=== PATIENT | female | born 2000 | race African-American/Black ===

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

== ENCOUNTER 2018-05-04 15:12 | Emergency (ER) | payer OTHER ==
[2018-05-04 15:23] VITALS: BP 119/71
--- NOTE | 2018-05-04 15:31 | PHYS DOC ---
Past History Past Medical History: No Pertinent History Past Surgical History: Other Smoking: Cigarettes, Less than 1pk/day Alcohol Use: None Drug Use: None Adult General Chief Complaint Chief Complaint: EARACHE/EAR PAIN HPI HPI Patient is a 17-year-old female who presents with complaint of sore throat, bilateral ear pain as well as cough and congestion for the last couple of days. She states that she has had a purulent nasal discharge as well. She states that she has had a fever as high as 100 at home. She denies any nausea or vomiting. Review of Systems Review of Systems Constitutional: Complains of fever[] Eyes: Denies change in visual acuity, redness, or eye pain [] HENT: Complains of sore throat with nasal congestion and purulent nasal discharge[] Respiratory: Complains of cough without shortness of breath[] Musculoskeletal: Denies back pain or joint pain [] Integument: Denies rash or skin lesions [] All other systems were reviewed and found to be within normal limits, except as documented in this note. Allergies Allergies Allergies Coded Allergies Type Severity Reaction Last Updated Verified Sulfa (Sulfonamide Antibiotics) Allergy Intermediate Blood in stool 05/19/16 No Physical Exam Physical Exam Constitutional: Well developed, well nourished, no acute distress, non-toxic appearance. [] HENT: Left TM is dull and erythematous. Oropharynx demonstrates posterior cobblestoning. There are no tonsillar exudates. Frontal sinuses are nontender but maxillary sinuses are tender bilaterally. [] Eyes: PERRLA, EOMI, conjunctiva normal, no discharge. [] Neck: Normal range of motion, no tenderness, supple, no stridor. [] Cardiovascular:Heart rate regular rhythm [] Lungs & Thorax: Bilateral breath sounds clear to auscultation [] Skin: Warm, dry, no erythema, no rash. [] EKG EKG [] Radiology/Procedures Radiology/Procedures [] Course & Med Decision Making Course & Med Decision Making Pertinent Labs and Imaging studies reviewed. (See chart for details) [] Dragon Disclaimer Dragon Disclaimer This electronic medical record was generated, in whole or in part, using a voice recognition dictation system. Departure Departure: Impression: Primary Impression: Acute sinusitis Additional Impression: Left otitis media Disposition: 01 HOME, SELF-CARE Condition: STABLE Referrals: EMILY LA (PCP) Patient Instructions: Otitis Media, Adult, Sinusitis Problem Qualifiers Primary Impression: Acute sinusitis Sinusitis location: maxillary Recurrence: not specified as recurrent Qualified Codes: J01.00 - Acute maxillary sinusitis, unspecified Additional Impression: Left otitis media Otitis media type: unspecified Qualified Codes: H66.92 - Otitis media, unspecified, left ear AYDEE CARBAJAL Jr. DO May 04, 2018 15:31
== END 2018-05-04 15:41 | disposition home or self-care (01) ==
LOC: ER 15:12
DX: J01.00 Acute maxillary sinusitis, unspecified (principal); H66.92 Otitis media, unspecified, left ear; F17.210 Nicotine dependence, cigarettes, uncomplicated; Z88.2 Allergy status to sulfonamides
CPT/HCPCS: 99281

== ENCOUNTER 2018-10-06 00:22 | Emergency (ER) | payer OTHER ==
[~2018-10-06] VITALS: Ht 172.7 cm; Wt 118.9 kg
[2018-10-06 00:47] VITALS: BP 96/62
--- NOTE | 2018-10-06 01:03 | PHYS DOC ---
Past History Past Medical History: No Pertinent History Past Surgical History: Other Smoking: Cigarettes, Less than 1pk/day Alcohol Use: None Drug Use: None Adult General Chief Complaint Chief Complaint: CHEST PAIN HPI HPI Patient is a 17-year-old female who presents with complaint of chest wall pain that started this evening. She states that she has been having cough for the last couple of days that has been dry. She states that she is starting to get sore in her chest. She states that the pain in her chest is worse with deep breathing and with certain movements. She describes it as sharp and stabbing and rates the pain at a 6 out of 10. She denies any nausea, vomiting or diaphoresis. She also denies any fever. Review of Systems Review of Systems Constitutional: Denies fever or chills [] Respiratory: Complains of cough without shortness of breath [] Cardiovascular: No additional information not addressed in HPI [] GI: Denies abdominal pain, nausea, vomiting, bloody stools or diarrhea [] Musculoskeletal: Denies back pain or joint pain [] All other systems were reviewed and found to be within normal limits, except as documented in this note. Allergies Allergies Allergies Coded Allergies Type Severity Reaction Last Updated Verified Sulfa (Sulfonamide Antibiotics) Allergy Intermediate Blood in stool 10/06/18 No Physical Exam Physical Exam Constitutional: Well developed, well nourished, no acute distress, non-toxic appearance. [] HENT: Normocephalic, atraumatic, bilateral external ears normal, oropharynx moist, no oral exudates, nose normal. [] Cardiovascular:Heart rate regular rhythm, no murmur [] Lungs & Thorax: Bilateral breath sounds clear to auscultation [] Extremities: No tenderness, no cyanosis, no clubbing, ROM intact, no edema. [] Neurologic: Alert and oriented X 3, no focal deficits noted. [] Current Patient Data Vital Signs Vital Signs Date Time Temp Pulse Resp B/P (MAP) Pulse Ox O2 Delivery O2 Flow Rate FiO2 10/06/18 00:47 98.5 85 20 100 Room Air EKG EKG EKG demonstrates normal sinus rhythm with no ST segment abnormalities.[] Radiology/Procedures Radiology/Procedures [] Impressions: Chest x-ray demonstrates no acute process. Course & Med Decision Making Course & Med Decision Making Pertinent Labs and Imaging studies reviewed. (See chart for details) [] Dragon Disclaimer Dragon Disclaimer This electronic medical record was generated, in whole or in part, using a voice recognition dictation system. Departure Departure: Impression: Primary Impression: Chest wall pain Additional Impression: URI (upper respiratory infection) Disposition: HOME, SELF-CARE Condition: STABLE Referrals: EMILY LA (PCP) Patient Instructions: Chest Wall Pain, Upper Respiratory Infection, Adult Scripts Azithromycin (ZITHROMAX) 250 Mg Tablet 1 PKG PO UD for infection, #6 TAB Prov: AYDEE CARBAJAL Jr. DO 10/06/18 Benzonatate (TESSALON PERLE) 100 Mg Capsule 1 CAP PO TID PRN for COUGH, #21 CAP Prov: AYDEE CARBAJAL Jr. DO 10/06/18 Problem Qualifiers Additional Impression: URI (upper respiratory infection) URI type: unspecified URI Qualified Codes: J06.9 - Acute upper respiratory infection, unspecified AYDEE CARBAJAL Jr. DO Oct 06, 2018 01:03
[2018-10-06] MEDS ORDERED: BENZ100C PO (01:51)
[2018-10-06] MEDS ORDERED: AZIT250T PO (01:51)
[2018-10-06] MEDS ORDERED: AZITHROMYCIN 250 MG TABLET. ONE (01:56)
[2018-10-06] MEDS ORDERED: AZITHROMYCIN 250 MG TABLET. PO ONE (02:15)
--- NOTE | 2018-10-06 06:29 | EKG ---
[address] [address] Test Date: 2018-10-06 Test Time: 01:16:02 Pat Name: MARICRUZ GREENFIELD Department: Room: Gender: F [employer]: : 2000 Requested By: AYDEE CARBAJAL Order Number: [id number] Reading MD: Richard Velasquez MD Measurements Intervals [place] Rate: 69 P: 31 NH: 158 QRS: 55 QRSD: 78 T: 27 QT: 370 QTc: 398 Interpretive Statements SINUS RHYTHM Electronically Signed On 10-10-2018 15:04:50 CDT by Richard Velasquez MD
--- NOTE | 2018-10-06 08:03 | RAD ---
Chest, PA and Lateral: Technique: PA and lateral views of the chest were obtained. History: Cough, chest pain. Comparison: None. Findings: The heart and pulmonary vasculature appear within normal limits. The lungs are clear. The pleural margins are clear. Impression: No acute chest process is seen. Electronically signed by: Juan Antonio Caceres MD (10/06/2018 8:00 AM) [facility]
== END 2018-10-06 02:07 | disposition home or self-care (01) ==
LOC: ER 00:22
DX: R07.89 Other chest pain (principal); J06.9 Acute upper respiratory infection, unspecified; F17.210 Nicotine dependence, cigarettes, uncomplicated; Z88.2 Allergy status to sulfonamides
CPT/HCPCS: 71046; 93005; 99283; J0456

== ENCOUNTER 2019-01-24 15:56 | Emergency (ER) | payer OTHER ==
[~2019-01-24] VITALS: Ht 172.7 cm; Wt 115.6 kg
[~2019-01-24 15:56] MED LIST changes: +AZIT250T PO; +BENZ100C PO
[2019-01-24 15:58] VITALS: BP 135/90
[2019-01-24] MEDS ORDERED: CEPH-264 PO (16:16)
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
== END 2019-01-24 16:20 | disposition home or self-care (01) ==
LOC: ER 15:56
DX: T24.022A Burn of unspecified degree of left knee, initial encounter (principal); T24.021A Burn of unspecified degree of right knee, initial encounter; L03.115 Cellulitis of right lower limb; E11.9 Type 2 diabetes mellitus without complications; F17.210 Nicotine dependence, cigarettes, uncomplicated; Z88.2 Allergy status to sulfonamides; X08.8XXA Exposure to other specified smoke, fire and flames, initial encounter; Y93.89 Activity, other specified; Y92.89 Other specified places as the place of occurrence of the external cause; Y99.8 Other external cause status
CPT/HCPCS: 99283

== ENCOUNTER → 2019-03-07 | Outpatient (CLI) | payer OTHER ==
[~2019-03-07] MED LIST changes: +CEPH-264 PO
[2019-03-07 15:28] LABS: BASO % 1 % (0-3); EOS # 0.2 x10^3/uL (0.0-0.7); EOS % 3 % (0-3); HEMOGLOBIN 13.5 g/dL (12.0-15.5); LYMPH # 3.5 x10^3/uL (1.0-4.8); LYMPH % 40 % (24-48); MEAN CORPUSCULAR HEMOGLOBIN 31 pg (25-35); MEAN CORPUSCULAR HGB CONC 34 g/dL (31-37); MEAN CORPUSCULAR VOLUME 91 fL (79-100); MONO # 0.4 x10^3/uL (0.0-1.1); MONO % 5 % (0-9); NEUT # 4.5 x10^3uL (1.8-7.7); NEUT % 52 % (31-73); PLATELET COUNT 396 x10^3/uL (140-400); WHITE BLOOD COUNT 8.7 x10^3/uL (4.0-11.0)
[2019-03-08 10:14] LABS: THYROID STIM HORMONE (TSH) 0.934 uIU/mL (0.358-3.740)
[2019-03-08 11:07] LABS: C-PEPTIDE 2.3 ng/mL (1.1-4.4); INSULIN LEVEL 9.5 uIU/mL (2.6-24.9)
== END | disposition home or self-care (01) ==
LOC: LAB 14:32
PROVIDERS: ATTEND Family Medicine
DX: E16.1 Other hypoglycemia (principal)
CPT/HCPCS: 36415; 80061; 82728; 83525; 83540; 83550; 84443; 84681; 85025

== ENCOUNTER 2019-04-09 20:27 | Emergency (ER) | payer OTHER ==
[~2019-04-09] VITALS: Ht 172.7 cm; Wt 114.0 kg
--- NOTE | 2019-04-09 20:39 | ED.ADGEN ---
Past History Past Medical History: Constipation, Diabetes Past Surgical History: No Surgical History Smoking: Cigarettes, Less than 1pk/day Alcohol Use: None Drug Use: None Adult General Chief Complaint Chief Complaint ".. I am having some abdomen pain... " [facility] HPI Patient is a 18 year old female who presents with above hx and complaints of abdomen pain. Pain started this morning. Seems to be in lower abdomen and more towards the right and mid abdomen. No history of bad food. No history of trauma. No history of significant ill contacts. No history of travel. No complaints of dysuria or vaginal discharge. Patient has been 2 times with 2 miscarriages .Does have a history of PCOs US 2 yrs ago at [facility], no large cysts. Patient does take metformin . P no family history of colitis. No history immunosuppression. Patient normally healthy. No history of STDs. Has had 4 lifetime sexual partners. Did have a stool this morning. PT. follows with Dr. Hernandez. Review of Systems Review of Systems Constitutional: Denies fever or chills [] Eyes: Denies change in visual acuity, redness, or eye pain [] HENT: Denies nasal congestion or sore throat [] Respiratory: Denies cough or shortness of breath [] Cardiovascular: No additional information not addressed in [facility] [] GI: Complaints of mid and right lower abdominal pain,. Denies nausea, vomiting, bloody stools or diarrhea [] : Denies dysuria or hematuria [] Musculoskeletal: Denies back pain or joint pain [] Integument: Denies rash or skin lesions [] Neurologic: Denies headache, focal weakness or sensory changes [] Endocrine: Denies polyuria or polydipsia [] All other systems were reviewed and found to be within normal limits, except as documented in this note. Family History Family History Noncontributory Current Medications Current Medications Current Medications Medications (Trade) Dose Ordered Sig/Mp Start Time Stop Time Status Last Admin Dose Admin Famotidine (Pepcid Vial) 20 mg 1X ONCE 04/09/19 21:30 04/09/19 21:31 DC 04/09/19 22:37 20 MG Iohexol (Omnipaque 240 Mg/ml) 30 ml 1X ONCE 04/09/19 23:15 04/09/19 23:16 DC 04/10/19 00:15 30 ML Iohexol (Omnipaque 300 Mg/ml) 75 ml 1X ONCE 04/09/19 23:15 04/09/19 23:16 DC 04/10/19 00:15 75 ML Lactated Ringer's 1,000 ml @ 1,000 mls/hr Q1H 04/09/19 21:06 04/09/19 22:05 DC 04/09/19 22:37 1,000 MLS/HR Levofloxacin (Levaquin) 500 mg 1X ONCE 04/10/19 01:15 04/10/19 02:49 DC 04/10/19 01:42 500 MG Magnesium Hydroxide (Milk Of Magnesia) 2,400 mg 1X ONCE 04/10/19 00:30 04/10/19 00:31 DC 04/10/19 00:35 2,400 MG Metronidazole (Flagyl) 500 mg 1X ONCE 04/10/19 01:15 04/10/19 02:50 DC 04/10/19 01:42 500 MG Ondansetron HCl (Zofran) 8 mg 1X ONCE 04/09/19 21:30 04/09/19 21:31 DC 04/09/19 22:37 8 MG See nursing for home medications Allergies Allergies Allergies Coded Allergies Type Severity Reaction Last Updated Verified Sulfa (Sulfonamide Antibiotics) Allergy Intermediate Blood in stool 10/06/18 No Physical Exam Physical Exam Constitutional: Moderate acute distress, non-toxic appearance. [] HENT: Normocephalic, atraumatic, bilateral external ears normal, oropharynx moist, no oral exudates, nose normal. [] Eyes: PERRLA, EOMI, conjunctiva normal, no discharge. [] Neck: Normal range of motion, no tenderness, supple, no stridor. [] Cardiovascular:Heart rate regular rhythm, no murmur [] Lungs & Thorax: Bilateral breath sounds equal apexes scattered wheezes on auscultation [] Abdomen: Bowel sounds normal, soft, right mid and lower abdomen tenderness, no masses, no pulsatile masses. [] Has rebound to right mid and lower abdomen. Moderate distention. Declines rectal at this time. Skin: Warm, dry, no erythema, no rash. [] Back: No tenderness, no CVA tenderness. [] Extremities: No tenderness, no cyanosis, no clubbing, ROM intact, no edema. [] Psoas sign on right Neurologic: Alert and oriented X 3, normal motor function, normal sensory function, no focal deficits noted. [] Psychologic: Affect anxious, judgement normal, mood normal. [] Current Patient Data Vital Signs Vital Signs Date Time Temp Pulse Resp B/P (MAP) Pulse Ox O2 Delivery O2 Flow Rate FiO2 04/09/19 20:50 97.9 79 18 99 Room Air Lab Results Laboratory Tests Test 04/09/19 20:55 04/09/19 21:29 Urine Collection Type Unknown Urine Color Yellow Urine Clarity Hazy Urine pH 7.0 Urine Specific [place] 1.020 Urine Protein Neg (NEG-TRACE) Urine Glucose (UA) Neg mg/dL (NEG) Urine Ketones (Stick) Neg mg/dL (NEG) Urine Blood Neg (NEG) Urine Nitrite Neg (NEG) Urine Bilirubin Neg (NEG) Urine Urobilinogen Dipstick 0.2 mg/dL (0.2 mg/dL) Urine Leukocyte Esterase Neg (NEG) Urine RBC 0 /HPF (0-2) Urine WBC 1-4 /HPF (0-4) Urine Squamous Epithelial Cells Occ /LPF Urine Bacteria Few /HPF (0-FEW) Urine Mucus Mod /LPF Urine Opiates Screen Neg (NEG) Urine Methadone Screen Neg (NEG) Urine Barbiturates Neg (NEG) Urine Phencyclidine Screen Neg (NEG) Urine Amphetamine/Methamphetamine Neg (NEG) Urine Benzodiazepines Screen Neg (NEG) Urine Cocaine Screen Pos (NEG) Urine Cannabinoids Screen Pos (NEG) Urine Ethyl Alcohol Neg (NEG) White Blood Count 8.1 x10^3/uL (4.0-11.0) Red Blood Count 3.96 x10^6/uL (3.50-5.40) Hemoglobin 12.0 g/dL (12.0-15.5) Hematocrit 36.6 % (36.0-47.0) Mean Corpuscular Volume 93 fL (79-100) Mean Corpuscular Hemoglobin 30 pg (25-35) Mean Corpuscular Hemoglobin Concent 33 g/dL (31-37) Red Cell Distribution Width 14.3 % (11.5-14.5) Platelet Count 325 x10^3/uL (140-400) Neutrophils (%) (Auto) 46 % (31-73) Lymphocytes (%) (Auto) 47 % (24-48) Monocytes (%) (Auto) 5 % (0-9) Eosinophils (%) (Auto) 2 % (0-3) Basophils (%) (Auto) 1 % (0-3) Neutrophils # (Auto) 3.7 x10^3uL (1.8-7.7) Lymphocytes # (Auto) 3.8 x10^3/uL (1.0-4.8) Monocytes # (Auto) 0.4 x10^3/uL (0.0-1.1) Eosinophils # (Auto) 0.2 x10^3/uL (0.0-0.7) Basophils # (Auto) 0.1 x10^3/uL (0.0-0.2) Maternal Serum HCG Beta Subunit < 1 mIU/mL (0-6) Sodium Level 140 mmol/L (136-145) Potassium Level 3.9 mmol/L (3.5-5.1) Chloride Level 105 mmol/L (98-107) Carbon Dioxide Level 27 mmol/L (21-32) Anion Gap 8 (6-14) Blood Urea Nitrogen 11 mg/dL (7-20) Creatinine 0.9 mg/dL (0.6-1.0) Estimated GFR (Cockcroft-Gault) 96.6 Glucose Level 84 mg/dL (70-99) Calcium Level 8.7 mg/dL (8.5-10.1) Total Bilirubin 0.2 mg/dL (0.2-1.0) Direct Bilirubin 0.1 mg/dL (0.0-0.2) Aspartate Amino Transferase (AST) 14 U/L (15-37) L Alanine Aminotransferase (ALT) 12 U/L (14-59) L Alkaline Phosphatase 72 U/L (46-116) Total Protein 6.8 g/dL (6.4-8.2) Albumin 3.5 g/dL (3.4-5.0) Amylase Level 30 U/L (25-115) Lipase 66 U/L (73-393) L EKG EKG [] Radiology/Procedures Radiology/Procedures [[address] [address] IMAGING REPORT Signed PATIENT: MARICRUZ GREENFIELD ACCOUNT: [id number] : 2000 LOCATION: ER AGE: 18 SEX: F EXAM STATUS: REG ER ORD. PHYSICIAN: MORENA HAAS MD REASON: pain PROCEDURE: CT ABD PELV W/ORAL&IV CONTRAST CT abdomen and pelvis with contrast PQRS statement: CT scans at this facility use dose reduction including either automated exposure control, iterative reconstructions, and /or weight based radiation dosing via mA and kV modification when appropriate to reduce radiation dose to as low as reasonably achievable. HISTORY: Right-sided abdominal pain. History of ovarian cysts. TECHNIQUE: Helical CT imaging abdomen and pelvis with 75 mL Omnipaque 300 intravenous contrast. Abdomen findings: Shallow disc bulges lumbar spine. Lung bases unremarkable. Liver, gallbladder, spleen, adrenal glands, kidneys and pancreas are unremarkable. The appendix is negative. No obstruction or inflammatory changes in GI tract. No abdominal fluid. Right lower quadrant ileocolic mesenteric mild prominent lymph nodes measuring up to 9 mm in size. Pelvis findings: Subcentimeter hypodensities of the ovary is most likely follicles. Central uterine hypodensity 1 cm thickness likely endometrium or fluid. Bladder, rectum and bones are unremarkable. Miniscule volume of fluid within the cul-de-sac normal for a premenopausal female typically observed with lobulation. No enlarged adenopathy. IMPRESSION: Borderline enlarged right lower quadrant ileocolic mesenteric lymph nodes without inflammatory change largest measuring 9 mm. This could be the sequela of mesenteric adenitis or reactive lymph nodes. The appendix is negative. Electronically signed by: Jessica Trujillo MD (04/10/2019 12:36 AM) [facility] DICTATED AND SIGNED BY: JESSICA TRUJILLO MD DATE: 04/10/1937 CC: MORENA HAAS MD; RUIZ HERNANDEZ MD ~ ][place] [address] IMAGING REPORT Signed PATIENT: MARICRUZ GREENFIELD ACCOUNT: [id number] : 2000 LOCATION: ER AGE: 18 SEX: F EXAM STATUS: REG ER ORD. PHYSICIAN: MORENA HAAS MD REASON: Severe right sided abdomen pain PROCEDURE: ACUTE ABDOMEN SERIES PA chest and AP upright supine abdomen x-rays HISTORY: Right-sided abdominal pain. FINDINGS: Heart and mediastinum are normal. No pulmonary opacities or pleural effusions. No pneumoperitoneum. Mild volume of stool within the right-sided colon. No dilated bowel loops or abnormal air-fluid levels. The bones and soft tissues or unremarkable. IMPRESSION: Normal exam. Electronically signed by: Jessica Trujillo MD (04/09/2019 11:51 PM) [facility] DICTATED AND SIGNED BY: JESSICA TRUJILLO MD DATE: 04/09/19 0190 CC: MORENA HAAS MD; RUIZ HERNANDEZ MD ~ Course & Med Decision Making Course & Med Decision Making Pertinent Labs and Imaging studies reviewed. (See chart for details) Patient to remain on a clear fluid diet only for the next 2 days. No solids or milk products. Must allow bowel rest. Take Levaquin 500 mg daily for 5 days. Take Flagyl 500 mg 3 times a day for 5 days. May take Zofran for nausea and vomiting. May have for marked discomfort take Vicoprofen up 4 times a day. Patient encouraged to stop smoking. Patient encouraged to avoid illicit drug use. If no resolution of abdomen pain consider colonoscopy for evaluation of colitis/inflammatory bowel disorder. Return if any concerns. Must follow-up. [] Final Impression Final Impression 1. Abdomen pain[] 2. Hx PCOs 3. DM- on metformin 4. Tobacco and Marijuana Use 5. Cocaine Use + drug screen 6. Mesenteric Adenitis 7. Constipation Dragon Disclaimer Dragon Disclaimer This electronic medical record was generated, in whole or in part, using a voice recognition dictation system. Dragon Disclaimer This chart was dictated in whole or in part using Voice Recognition software in a busy, high-work load, and often noisy Emergency Department environment. It may contain unintended and wholly unrecognized errors or omissions. MORENA HAAS MD Apr 09, 2019 20:39
[2019-04-09] MEDS ORDERED: IV RINGERS SOLUTION,LACTATED 1,000 ML IV SCH (21:06)
[2019-04-09] MEDS ORDERED: ONDANSETRON PF 4 MG/2 ML VIAL. IV ONE (21:30)
[2019-04-09] MEDS ORDERED: FAMOTIDINE 20 MG/2 ML VIAL IVP ONE (21:30)
[2019-04-09 21:49] LABS: BASO # 0.1 x10^3/uL (0.0-0.2); BASO % 1 % (0-3); EOS # 0.2 x10^3/uL (0.0-0.7); EOS % 2 % (0-3); HEMATOCRIT 36.6 % (36.0-47.0); LYMPH # 3.8 x10^3/uL (1.0-4.8); LYMPH % 47 % (24-48); MEAN CORPUSCULAR HEMOGLOBIN 30 pg (25-35); MEAN CORPUSCULAR HGB CONC 33 g/dL (31-37); MEAN CORPUSCULAR VOLUME 93 fL (79-100); MONO # 0.4 x10^3/uL (0.0-1.1); MONO % 5 % (0-9); NEUT # 3.7 x10^3uL (1.8-7.7); NEUT % 46 % (31-73); PLATELET COUNT 325 x10^3/uL (140-400); RED BLOOD COUNT 3.96 x10^6/uL (3.50-5.40); RED CELL DISTRIBUTION WIDTH 14.3 % (11.5-14.5); WHITE BLOOD COUNT 8.1 x10^3/uL (4.0-11.0)
[2019-04-09 21:54] LABS: BARBITURATES NEG (NEG); BENZODIAZEPINES NEG (NEG); CANNABINOIDS POS (NEG); COCAINE POS (NEG); METHADONE NEG (NEG); OPIATES NEG (NEG); PHENCYCLIDINE NEG (NEG)
[2019-04-09 21:57] LABS: AMPHETAMINE/METHAMPHETAMINE NEG (NEG)
[2019-04-09 22:05] LABS: BACTERIA,URINE FEW /HPF (0-FEW); BILIRUBIN,URINE NEG (NEG); CLARITY,URINE HAZY; COLOR,URINE YELLOW; GLUCOSE,URINE NEG (NEG); NITRITE,URINE NEG (NEG); RBC,URINE 0 /HPF (0-2); SQUAMOUS EPITHELIAL CELL,UR OCC /LPF; UROBILINOGEN,URINE 0.2 mg/dL (0.2 mg/dL)
[2019-04-09 22:07] LABS: ALBUMIN 3.5 g/dL (3.4-5.0); CALCIUM 8.7 mg/dL (8.5-10.1); CREATININE 0.9 mg/dL (0.6-1.0); DIRECT BILIRUBIN 0.1 mg/dL (0.0-0.2); GFR 96.6; POTASSIUM 3.9 mmol/L (3.5-5.1); TOTAL BILIRUBIN 0.2 mg/dL (0.2-1.0); TOTAL PROTEIN 6.8 g/dL (6.4-8.2)
[2019-04-09] MEDS ORDERED: IOHEXOL 300 MG/ML 75 ML VIAL. IV ONE (23:15)
[2019-04-09] MEDS ORDERED: IOHEXOL 240 MG/ML 50ML VIAL. PO ONE (23:15)
--- NOTE | 2019-04-09 23:54 | RAD ---
PA chest and AP upright supine abdomen x-rays HISTORY: Right-sided abdominal pain. FINDINGS: Heart and mediastinum are normal. No pulmonary opacities or pleural effusions. No pneumoperitoneum. Mild volume of stool within the right-sided colon. No dilated bowel loops or abnormal air-fluid levels. The bones and soft tissues or unremarkable. IMPRESSION: Normal exam. Electronically signed by: Derrek Trujillo MD (04/09/2019 11:51 PM) [facility]
[2019-04-10] MEDS ORDERED: MAGNESIUM HYDROXIDE 2,400 MG/30 ML ORAL.SUSP. PO ONE (00:30)
--- NOTE | 2019-04-10 00:39 | RAD ---
CT abdomen and pelvis with contrast PQRS statement: CT scans at this facility use dose reduction including either automated exposure control, iterative reconstructions, and /or weight based radiation dosing via mA and kV modification when appropriate to reduce radiation dose to as low as reasonably achievable. HISTORY: Right-sided abdominal pain. History of ovarian cysts. TECHNIQUE: Helical CT imaging abdomen and pelvis with 75 mL Omnipaque 300 intravenous contrast. Abdomen findings: Shallow disc bulges lumbar spine. Lung bases unremarkable. Liver, gallbladder, spleen, adrenal glands, kidneys and pancreas are unremarkable. The appendix is negative. No obstruction or inflammatory changes in GI tract. No abdominal fluid. Right lower quadrant ileocolic mesenteric mild prominent lymph nodes measuring up to 9 mm in size. Pelvis findings: Subcentimeter hypodensities of the ovary is most likely follicles. Central uterine hypodensity 1 cm thickness likely endometrium or fluid. Bladder, rectum and bones are unremarkable. Miniscule volume of fluid within the cul-de-sac normal for a premenopausal female typically observed with lobulation. No enlarged adenopathy. IMPRESSION: Borderline enlarged right lower quadrant ileocolic mesenteric lymph nodes without inflammatory change largest measuring 9 mm. This could be the sequela of mesenteric adenitis or reactive lymph nodes. The appendix is negative. Electronically signed by: Derrek Trujillo MD (04/10/2019 12:36 AM) [facility]
[2019-04-10] MEDS ORDERED: HYDR-1179 PO (01:11)
[2019-04-10] MEDS ORDERED: LEVO500T59 PO (01:11)
[2019-04-10] MEDS ORDERED: METR500T PO (01:11)
[2019-04-10] MEDS ORDERED: ONDA8TAB9 PO (01:11)
[2019-04-10 01:15] VITALS: BP 143/88
[2019-04-10] MEDS ORDERED: metroNIDAZOLE 500 MG TABLET PO ONE (01:15)
[2019-04-10] MEDS ORDERED: levoFLOXacin 500 MG TABLET PO ONE (01:15)
== END 2019-04-10 01:45 | disposition home or self-care (01) ==
LOC: ER 20:27
DX: K59.00 Constipation, unspecified (principal); I88.0 Nonspecific mesenteric lymphadenitis; E11.9 Type 2 diabetes mellitus without complications; E28.2 Polycystic ovarian syndrome; F17.210 Nicotine dependence, cigarettes, uncomplicated; F12.90 Cannabis use, unspecified, uncomplicated; F14.90 Cocaine use, unspecified, uncomplicated; Z88.2 Allergy status to sulfonamides
CPT/HCPCS: 36415; 74022; 74177; 80048; 80076; 80307; 81001; 82150; 83690; 84702; 85025; 96374; 96375; 99285; J2405; J3490; J7120; Q9966; Q9967

== ENCOUNTER 2019-12-16 22:06 | Emergency (ER) | payer SELFPAY ==
[~2019-12-16] VITALS: Ht 172.7 cm; Wt 119.0 kg
[2019-12-16 22:06] VITALS: BP 148/95
[~2019-12-16 22:06] MED LIST changes: +HYDR-1179 PO; +LEVO500T59 PO; +METR500T PO; +ONDA8TAB9 PO
[2019-12-16] MEDS ORDERED: BENZ100C PO (22:31)
--- NOTE | 2019-12-16 22:32 | PHYS DOC ---
Past History Past Medical History: Constipation, Diabetes Additional Past Medical Histor: POCS Past Surgical History: No Surgical History Smoking: Cigarettes, Less than 1pk/day Alcohol Use: None Drug Use: None General Adult EDM: Chief Complaint: COUGH HPI: HPI: Patient is a 19-year-old female who presents with a 2-day history of cough. She states is been a dry hacking cough. She has coughed up a little bit of clear mucus. She denies any shortness of breath or fever. She denies hemoptysis. She does not think anybody else around her is been sick. [] Review of Systems: Review of Systems: Constitutional: Denies fever or chills Eyes: Denies change in visual acuity HENT: Denies nasal congestion or sore throat Respiratory: D Per HPI Cardiovascular: Denies chest pain or edema GI: Denies abdominal pain, nausea, vomiting, bloody stools or diarrhea : Denies dysuria Musculoskeletal: Denies back pain or joint pain Integument: Denies rash Neurologic: Denies headache, focal weakness or sensory changes Endocrine: Denies polyuria or polydipsia Lymphatic: Denies swollen glands Psychiatric: Denies depression or anxiety Heart Score: Risk Factors: Risk Factors: DM, Current or recent (<one month) smoker, HTN, HLP, family history of CAD, obesity. Risk Scores: Score 0 - 3: 2.5% MACE over next 6 weeks - Discharge Home Score 4 - 6: 20.3% MACE over next 6 weeks - Admit for Clinical Observation Score 7 - 10: 72.7% MACE over next 6 weeks - Early Invasive Strategies Allergies: Allergies: Allergies Coded Allergies Type Severity Reaction Last Updated Verified Sulfa (Sulfonamide Antibiotics) Allergy Intermediate Blood in stool 10/06/18 No Physical Exam: PE: Constitutional: Well developed, well nourished, no acute distress, non-toxic appearance. [] HENT: Normocephalic, atraumatic, bilateral external ears normal, oropharynx moist, no oral exudates, nose normal. [] Eyes: PERRLA, EOMI, conjunctiva normal, no discharge. [] Neck: Normal range of motion, no tenderness, supple, no stridor. [] Cardiovascular:Heart rate regular rhythm, no murmur [] Lungs & Thorax: Bilateral breath sounds clear to auscultation [] Abdomen: Bowel sounds normal, soft, no tenderness, no masses, no pulsatile masses. [] Skin: Warm, dry, no erythema, no rash. [] Back: No tenderness, no CVA tenderness. [] Extremities: No tenderness, no cyanosis, no clubbing, ROM intact, no edema. [] Neurologic: Alert and oriented X 3, normal motor function, normal sensory function, no focal deficits noted. [] Psychologic: Affect normal, judgement normal, mood normal. [] EKG: EKG: [] Radiology/Procedures: Radiology/Procedures: [] Course & Med Decision Making: Course & Med Decision Making Pertinent Labs and Imaging studies reviewed. (See chart for details) [] Dragon Disclaimer: Dragon Disclaimer: This electronic medical record was generated, in whole or in part, using a voice recognition dictation system. Departure Departure: Impression: Primary Impression: URI (upper respiratory infection) Qualified Codes: J06.9 - Acute upper respiratory infection, unspecified Disposition: 01 HOME/RESIDENCE PRIOR TO ADM Condition: STABLE Referrals: EMILY LA (PCP) Patient Instructions: Cough, Adult, [id number] Scripts Benzonatate (TESSALON PERLE) 100 Mg Capsule 1 CAP PO TID for cough, #30 CAP Prov: ZAINAB QUIROGA DO 12/16/19 ZAINAB QUIROGA DO December 16, 2019 22:32
== END 2019-12-16 22:40 | disposition home or self-care (01) ==
LOC: ER 22:06
DX: J06.9 Acute upper respiratory infection, unspecified (principal); E11.9 Type 2 diabetes mellitus without complications; F17.210 Nicotine dependence, cigarettes, uncomplicated; Z88.2 Allergy status to sulfonamides
CPT/HCPCS: 99283

== ENCOUNTER → 2021-01-17 | Outpatient (CLI) | payer OTHER ==
[2021-01-17 16:45] LABS: BASO % 1 % (0-3); EOS # 0.1 x10^3/uL (0.0-0.7); EOS % 2 % (0-3); HEMATOCRIT 39.2 % (36.0-47.0); HEMOGLOBIN 12.8 g/dL (12.0-15.5); LYMPH # 2.3 x10^3/uL (1.0-4.8); LYMPH % 30 % (24-48); MEAN CORPUSCULAR HEMOGLOBIN 30 pg (25-35); MEAN CORPUSCULAR HGB CONC 33 g/dL (31-37); MEAN CORPUSCULAR VOLUME 92 fL (79-100); MONO # 0.3 x10^3/uL (0.0-1.1); MONO % 4 % (0-9); NEUT # 4.9 x10^3uL (1.8-7.7); NEUT % 64 % (31-73); PLATELET COUNT 374 x10^3/uL (140-400); RED BLOOD COUNT 4.28 x10^6/uL (3.50-5.40); RED CELL DISTRIBUTION WIDTH 13.4 % (11.5-14.5); WHITE BLOOD COUNT 7.6 x10^3/uL (4.0-11.0)
[2021-01-17 17:01] LABS: ALBUMIN 3.8 g/dL (3.4-5.0); CALCIUM 9.2 mg/dL (8.5-10.1); CREATININE 0.9 mg/dL (0.6-1.0); GFR 94.7; POTASSIUM 3.9 mmol/L (3.5-5.1); TOTAL BILIRUBIN 0.2 mg/dL (0.2-1.0); TOTAL PROTEIN 7.7 g/dL (6.4-8.2)
[2021-01-18 10:09] LABS: PROGESTERONE 6.6 ng/mL (.); TESTOSTERONE TOTAL 38 ng/dL (13-71)
[2021-01-18 14:38] LABS: FREE T4 0.98 ng/dL (0.76-1.46); THYROID STIM HORMONE (TSH) 1.926 uIU/mL (0.358-3.740)
[2021-01-19 00:08] LABS: HEMOGLOBIN A1C 5.8 % (4.8-5.6)
[2021-01-19 13:11] LABS: INSULIN LEVEL 23.1 uIU/mL (2.6-24.9)
== END ==
LOC: LAB 14:31
PROVIDERS: ATTEND Physician Assistant Medical
DX: Z31.69 Encounter for other general counseling and advice on procreation (principal); E16.1 Other hypoglycemia; E88.81 Metabolic syndrome and other insulin resistance; R73.9 Hyperglycemia, unspecified
CPT/HCPCS: 36415; 80053; 82672; 83036; 83525; 84144; 84403; 84439; 84443; 85025; 88175

== ENCOUNTER 2021-11-10 11:52 | Emergency (ER) | payer OTHER ==
[~2021-11-10] VITALS: Ht 172.7 cm; Wt 136.0 kg
--- NOTE | 2021-11-10 12:12 | PHYS DOC ---
Past History Past Medical History: Constipation, Diabetes, Other Additional Past Medical Histor: POCS (RADHA QUAN APRN) Past Surgical History: No Surgical History (RADHA QUAN APRN) Smoking: Cigarettes, Less than 1pk/day Alcohol Use: None Drug Use: None (RADHA QUAN APRN) General Adult EDM: Chief Complaint: VOMITING IN HPI: HPI: Patient is a 20-year-old female who presents to the emergency department for left lower abdominal pain, bilateral low back cramping and nausea and vomiting. Patient is approximately 21 weeks . Her last menstrual period was sometime in May. 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 She is . Patient reports that she did have morning sickness and she thought it had resolved but she had 5 episodes of emesis this morning. Patient describes her abdominal pain as intermittent sharp and cramping. She states that at its worst is 6 out of 10 but she is not having any pain currently. Patient does have a history of PCOS. She states that she has been constipated with this she had a hard bowel movement today. Patient denies urinary symptoms, fevers, vaginal bleeding. (RADHA QUAN APRN) Review of Systems: Review of Systems: Constitutional: See HPI GI: See HPI : See HPI Musculoskeletal: See HPI (RADHA QUAN APRN) Allergies: Allergies: Allergies Coded Allergies Type Severity Reaction Last Updated Verified Sulfa (Sulfonamide Antibiotics) Allergy Intermediate Blood in stool 10/06/18 No (RADHA QUAN APRN) Physical Exam: PE: Constitutional: Well developed, well nourished, no acute distress, non-toxic appearance. [] HENT: Normocephalic, atraumatic, bilateral external ears normal, oropharynx moist, no oral exudates, nose normal. [] Eyes: PERRL, EOMI, conjunctiva normal, no discharge. [] Neck: Normal range of motion, no stridor Cardiovascular:Heart rate regular rhythm, no murmur [] Lungs & Thorax: Bilateral breath sounds clear to auscultation [] Abdomen: Bowel sounds normal, soft, mild left lower quadrant tenderness with palpation, no rebound tenderness, negative Edward sign, no abdominal guarding or rigidity,, no masses, no pulsatile masses. [] Skin: Warm, dry, no erythema, no rash. [] Back: No tenderness, no CVA tenderness. [] Extremities: No tenderness, no cyanosis, no clubbing, ROM intact, no edema. [] Neurologic: Alert and oriented X 3, normal motor function, normal sensory function, no focal deficits noted. [] Psychologic: Affect normal, judgement normal, mood normal. [] (RADHA QUAN APRN) Current Patient Data: Labs: Laboratory Tests Test 11/10/21 11:54 11/10/21 12:22 Urine Collection Type Void Urine Color Yellow Urine Clarity Clear Urine pH 7.0 Urine Specific [place] >=1.030 Urine Protein Neg Urine Glucose (UA) Neg mg/dL Urine Ketones (Stick) Neg mg/dL Urine Blood Neg Urine Nitrite Neg Urine Bilirubin Neg Urine Urobilinogen Dipstick 0.2 mg/dL Urine Leukocyte Esterase Neg Urine RBC 1-2 /HPF Urine WBC 1-4 /HPF Urine Squamous Epithelial Cells Many /LPF Urine Bacteria 0 /HPF Urine Mucus Marked /LPF White Blood Count 8.3 x10^3/uL Red Blood Count 4.17 x10^6/uL Hemoglobin 12.3 g/dL Hematocrit 37.7 % Mean Corpuscular Volume 91 fL Mean Corpuscular Hemoglobin 30 pg Mean Corpuscular Hemoglobin Concent 33 g/dL Red Cell Distribution Width 13.5 % Platelet Count 319 x10^3/uL Neutrophils (%) (Auto) 79 % Lymphocytes (%) (Auto) 16 % Monocytes (%) (Auto) 4 % Eosinophils (%) (Auto) 1 % Basophils (%) (Auto) 0 % Neutrophils # (Auto) 6.6 x10^3uL Lymphocytes # (Auto) 1.3 x10^3/uL Monocytes # (Auto) 0.3 x10^3/uL Eosinophils # (Auto) 0.1 x10^3/uL Basophils # (Auto) 0.0 x10^3/uL Sodium Level 138 mmol/L Potassium Level 4.3 mmol/L Chloride Level 107 mmol/L Carbon Dioxide Level 25 mmol/L Anion Gap 6 Blood Urea Nitrogen 8 mg/dL Creatinine 0.5 mg/dL Estimated GFR (Cockcroft-Gault) 186.7 BUN/Creatinine Ratio 16 Glucose Level 105 mg/dL Calcium Level 8.9 mg/dL Total Bilirubin 0.2 mg/dL Aspartate Amino Transf (AST/SGOT) 20 U/L Alanine Aminotransferase (ALT/SGPT) 25 U/L Alkaline Phosphatase 70 U/L Total Protein 6.6 g/dL Albumin 3.0 g/dL Albumin/Globulin Ratio 0.8 Lipase 72 U/L Current Medications Medications (Trade) Dose Ordered Sig/Mp Route PRN Reason Start Time Stop Time Status Last Admin Dose Admin Sodium Chloride 1,000 ml @ 1,000 mls/hr 1X ONCE IV 11/10/21 12:15 11/10/21 13:14 DC 11/10/21 12:29 Ondansetron HCl (Zofran) 4 mg 1X ONCE IVP 11/10/21 12:15 11/10/21 12:16 DC 11/10/21 12:29 (RADHA QUAN APRN) EKG: EKG: [] (RADHA QUAN APRN) Radiology/Procedures: Radiology/Procedures: []REASON: l lower abdominal pain with n/v, 21 weeks PROCEDURE: OB LIMITED US OB LIMITED History: Reason: l lower abdominal pain with n/v, 21 weeks / Spl. Instructions: / History: Comparison: None. Technique: Multiple grayscale images, color Doppler, and M-mode images of the uterus are obtained. Findings: There is a single intrauterine gestation in cephalic presentation. The placenta is fundal in location without evidence of placenta previa. The amount of amniotic fluid appears appropriate. Amniotic fluid index is 7.7 cm. Cervix is not well visualized due to overlying structures. Biometrical data: BPD = 4.96 cm for 21 weeks 0 days. HC = 18.74 cm for 21 weeks 0 days. AC = 17.19 cm for 22 weeks 1 days. FL = 3.43 cm for 20 weeks 6 days. HC/AC ratio = 1.09. Overall, the estimated sonographic gestational age is 21 weeks 2 days for an estimated date of delivery of March 21, 2022. The estimated date of delivery provided by the last menstrual period is March 11, 2022. Estimated weight is 424 grams. (15 ounces) Cardiac activity is detected. The estimated heart rate is 153 beats per minute. movement is detected. Cord insertion is visualized. Stomach is visualized. Impression: 1. Single intrauterine gestation with estimated gestational age 21 weeks 2 days. 2. Recommend routine anatomic ultrasound screening if not already performed. Electronically signed by: Chris Weaver DO (11/10/2021 2:43 PM) [facility] DICTATED AND SIGNED BY: CHRIS WEAVER DO DATE: 11/10/21 1433 CC: RADHA QUAN APRN; EMILY LA ~ (RADHA QUAN APRN) Heart Score: C/O Chest Pain: N/A Risk Factors: Risk Factors: DM, Current or recent (<one month) smoker, HTN, HLP, family history of CAD, obesity. Risk Scores: Score 0 - 3: 2.5% MACE over next 6 weeks - Discharge Home Score 4 - 6: 20.3% MACE over next 6 weeks - Admit for Clinical Observation Score 7 - 10: 72.7% MACE over next 6 weeks - Early Invasive Strategies (RADHA QUAN APRN) Course & Med Decision Making: Course & Med Decision Making Pertinent Labs and Imaging studies reviewed. (See chart for details) [] Patient presents to the emergency department for left lower abdominal pain with nausea and vomiting in . Patient denies any vaginal bleeding. Work-up in the ER consisted of blood work including lipase, urinalysis to rule out UTI and pelvic ultrasound. Patient treated with IV fluids and Zofran.Patient's blood work is unremarkable, negative lipase, urinalysis does not show any bacteria or leukocytes and there is many epithelial cells. Ultrasound does not show any acute findings, patient is heart rate was appropriate and there is good movement. Patient reports improvement in her nausea and symptoms following treatment in the emergency department. She will be discharged home with nausea medication. Advised to take Tylenol if she has any back pain. She is advised to increase her fluids and follow-up with her [employer] [employer]. I discussed with patient all findings and diagnostic testing as well as the need to follow-up with PCP for further evaluation and treatment or return to the ER if any new or worsening symptoms. Strict return precautions were also discussed at length. Patient voiced understanding and agreement with the plan. Patient is hemodynamically stable at the time of disposition. (RADHA QUAN APRN) Dragon Disclaimer: Dragon Disclaimer: This electronic medical record was generated, in whole or in part, using a voice recognition dictation system. (RADHA QUAN APRN) Attending Co-Sign The patient was seen and interviewed as well as examined at the bedside. The chart was reviewed. The case was discussed. Agree with the plan of care. (MIKE MELGAR DO) Departure Departure: Impression: Primary Impression: Nausea and vomiting during Disposition: 01 HOME / SELF CARE / HOMELESS Condition: GOOD Referrals: EMILY LA (PCP) Patient Instructions: ABCs of Additional Instructions: You were seen in the emergency department today for pain and nausea and vomiting. You are being discharged home with nausea medication that you can take as needed. Increase your fluids and rest. You can take Tylenol at home for your pain. Follow-up with your [facility] [facility] tomorrow regarding your ER visit. Return to the emergency department if you develop worsening of your abdominal pain, vaginal bleeding, intractable nausea or vomiting, high fevers refractory to treatment or any new or worsening concerns. Scripts Ondansetron (ONDANSETRON ODT) 4 Mg Tab.rapdis 1 TAB PO PRN Q6-8HRS for nausea for 7 Days, #28 TAB 0 Refills Prov: RADHA QUAN APRN 11/10/21 RADHA QUAN APRN Nov 10, 2021 12:12 MIKE MELGAR DO Nov 11, 2021 06:08
[2021-11-10] MEDS ORDERED: ONDANSETRON PF 4 MG/2 ML VIAL. IVP ONE (12:15)
[2021-11-10] MEDS ORDERED: IV NORMAL SALINE 1,000ML 1,000 ML IV ONE (12:15)
[2021-11-10 12:33] LABS: BASO % 0 % (0-3); EOS # 0.1 x10^3/uL (0.0-0.7); EOS % 1 % (0-3); HEMATOCRIT 37.7 % (36.0-47.0); HEMOGLOBIN 12.3 g/dL (12.0-15.5); LYMPH # 1.3 x10^3/uL (1.0-4.8); LYMPH % 16 % (24-48); MEAN CORPUSCULAR HEMOGLOBIN 30 pg (25-35); MEAN CORPUSCULAR HGB CONC 33 g/dL (31-37); MEAN CORPUSCULAR VOLUME 91 fL (79-100); MONO # 0.3 x10^3/uL (0.0-1.1); MONO % 4 % (0-9); NEUT # 6.6 x10^3uL (1.8-7.7); NEUT % 79 % (31-73); PLATELET COUNT 319 x10^3/uL (140-400); RED BLOOD COUNT 4.17 x10^6/uL (3.50-5.40); RED CELL DISTRIBUTION WIDTH 13.5 % (11.5-14.5); WHITE BLOOD COUNT 8.3 x10^3/uL (4.0-11.0)
[2021-11-10 12:40] LABS: CALCIUM 8.9 mg/dL (8.5-10.1); CREATININE 0.5 mg/dL (0.6-1.0); GFR 186.7; POTASSIUM 4.3 mmol/L (3.5-5.1)
[2021-11-10 12:45] LABS: ALBUMIN/GLOBULIN RATIO 0.8 (1.0-1.7); TOTAL BILIRUBIN 0.2 mg/dL (0.2-1.0); TOTAL PROTEIN 6.6 g/dL (6.4-8.2)
[2021-11-10 12:58] LABS: CLARITY,URINE CLEAR; COLOR,URINE YELLOW; GLUCOSE,URINE NEG (NEG)
[2021-11-10 12:59] LABS: BACTERIA,URINE 0 /HPF (0-FEW); NITRITE,URINE NEG (NEG); SQUAMOUS EPITHELIAL CELL,UR MANY /LPF; UROBILINOGEN,URINE 0.2 mg/dL (0.2 mg/dL)
[2021-11-10 14:16] VITALS: BP 129/74
--- NOTE | 2021-11-10 14:46 | RAD ---
US OB LIMITED History: Reason: l lower abdominal pain with n/v, 21 weeks / Spl. Instructions: / History: Comparison: None. Technique: Multiple grayscale images, color Doppler, and M-mode images of the uterus are obtained. Findings: There is a single intrauterine gestation in cephalic presentation. The placenta is fundal in location without evidence of placenta previa. The amount of amniotic fluid appears appropriate. Amniotic flu id index is 7.7 cm. Cervix is not well visualized due to overlying structures. Biometrical data: BPD = 4.96 cm for 21 weeks 0 days. HC = 18.74 cm for 21 weeks 0 days. AC = 17.19 cm for 22 weeks 1 days. FL = 3.43 cm for 20 weeks 6 days. HC/AC ratio = 1.09. Overall, the estimated sonographic gestational age is 21 weeks 2 days for an estimated date of delive ry of March 21, 2022. The estimated date of delivery provided by the last menstrual period is March 11, 2022. Estimated weight is 424 grams. (15 ounces) Cardiac activity is detected. The estimated heart rate is 153 beats per minute. movement is detected. Cord insertion is visualized. Stomach is visualized. Impression: 1. Single intrauterine gestation with estimated gestational age 21 weeks 2 days. 2. Recommend routine anatomic ultrasound screening if not already performed. Electronically signed by: Chris Arango DO (11/10/2021 2:43 PM) [facility]
[2021-11-10] MEDS ORDERED: ONDA4TAB12 PO (14:52)
== END 2021-11-10 14:56 | disposition home or self-care (01) ==
LOC: ER 11:52
DX: O21.9 Vomiting of pregnancy, unspecified (principal); R10.32 Left lower quadrant pain; O24.912 Unspecified diabetes mellitus in pregnancy, second trimester; Z3A.21 21 weeks gestation of pregnancy; Z88.2 Allergy status to sulfonamides
CPT/HCPCS: 36415; 76815; 80053; 81001; 83690; 85025; 96361; 96374; 99284; J2405; J7030